=== PATIENT | male | born 1995 | race Caucasian/White ===

== ENCOUNTER 2017-10-28 17:29 | Emergency (ER) | payer SELFPAY ==
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
== END 2017-10-28 18:30 | disposition home or self-care (01) ==
LOC: MW.ED 17:29
DX: Z57.5 Occupational exposure to toxic agents in other industries (principal); F17.210 Nicotine dependence, cigarettes, uncomplicated
CPT/HCPCS: 99282